=== PATIENT | female | born 1985 | race Caucasian/White ===

== ENCOUNTER 2024-05-06 18:09 | Emergency (ER) | payer OTHER ==
[2024-05-06 18:35] VITALS: RESP 18; TEMP 98.5
--- NOTE | 2024-05-06 18:44 | ERPHSYRPT ---
- History of Present Illness Time Seen by Provider: 05/06/24 18:30 Source: patient Exam Limitations: no limitations Patient Subjective Stated Complaint: pt states she gushed blood and had blood clots just prior to coming in. pt states that she is 11 weeks and 4 days pregna nt. 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 Patient reports she is currently 11 weeks 4 days . She describes vaginal bleeding. Patient's blood type is Rh+. Her last beta-hCG was 47,000. No nausea no vomiting no trauma no fever. Patient denies pain. Patient has had a complete workup including workup for STI. Patient concerned with viability. Patient otherwise feels well. She voices no other complaints or concerns at this time. Portions of this note were created with voice recognition technology. There may be grammatical, spelling, punctuation or sound alike errors Timing/Duration: today Severity: moderate Modifying Factors: Improves With: nothing Associated Symptoms: denies symptoms Allergies/Adverse Reactions: No Known Drug Allergies Allergy (Unverified 05/06/24 18:22) Home Medications: Pnv No.121/Iron/Folic Acid [ Multivitamin Tablet] 1 each PO DAILY 05/06/24 [History] Hx Tetanus, Diphtheria Vaccination/Date Given: Yes Hx Influenza Vaccination/Date Given: No Hx Pneumococcal Vaccination/Date Given: No Immunizations Up to Date: No Travel Risk - International Travel Have you traveled outside of the country in past 3 weeks: No - Emerging Infectious Disease Are you exhibiting symptoms associated with any current EIDs: No - Review of Systems Constitutional: No Symptoms Eyes: No Symptoms Ears, Nose, & Throat: No Symptoms Respiratory: No Symptoms Cardiac: No Symptoms Abdominal/Gastrointestinal: No Symptoms Genitourinary Symptoms: No Symptoms Musculoskeletal: No Symptoms Skin: No Symptoms Neurological: No Symptoms Psychological: No Symptoms Endocrine: No Symptoms Hematologic/Lymphatic: No Symptoms Immunological/Allergic: No Symptoms - Past Medical History Pertinent Past Medical History: Yes Female Reproductive Disorders: Endometriosis Other Medical History: PCOS - Past Surgical History Past Surgical History: Yes Female Surgical History: Other Other Surgical History: vaginal surgery - Female History Hx Now: Yes Gestational Age: 11 wks 4da - Social History Smoking Status: Former smoker Exposure to second hand smoke: No Drug Use: none - Social Determinants of Health Will the patient participate in the screening: Yes Do you worry about a steady place to live?: No Do you have any problems with any of the following?: No known problems In the past 12 months,have you had to go without utilities?: No Transportation Issues: No Has anyone in your support network made you feel unsafe?: No Have you or anyone in your house had to go without enough: No - Nursing Vital Signs Nursing Vital Signs: Initial Vital Signs Temperature 98.5 F 05/06/24 18:24 Pulse Rate 98 H 05/06/24 18:24 Respiratory Rate 18 05/06/24 18:24 Blood Pressure 118/75 05/06/24 18:24 Pain Scale Pain Intensity 0 - Physical Exam General Appearance: no apparent distress, alert Eye Exam: PERRL/EOMI, eyes nml inspection Ears, Nose, Throat Exam: normal ENT inspection, moist mucous membranes Neck Exam: normal inspection, full range of motion Respiratory Exam: normal breath sounds, airway intact, No respiratory distress Cardiovascular Exam: regular rate/rhythm, normal heart sounds, normal peripheral pulses Gastrointestinal/Abdomen Exam: soft, normal bowel sounds, No tenderness, No mass Back Exam: normal inspection, normal range of motion, No CVA tenderness, No vertebral tenderness Extremity Exam: normal inspection, normal range of motion, pelvis stable Neurologic Exam: alert, oriented x 3, cooperative, normal mood/affect, sensation nml, No motor deficits Skin Exam: normal color, warm, dry, No rash Lymphatic Exam: No adenopathy SpO2 Interpretation: normal SpO2: 98 O2 Delivery: Room Air - Course Nursing assessment & vital signs reviewed: Yes - Radiology Ultrasound Exam OB Ultrasound: tele radiology report (Single IUP good heart tones good movement. No adnexal masses seen. [place]-rump length is 4.8 cm. Patient is 11 weeks 4 days.) Ordered Tests: Active Orders 24 hr Category Date Time Status OB <14 WKS ADDL GESTATION [US] Stat Exams 05/06/24 18:27 Taken HCG QUALITATIVE, SERUM Stat Lab 05/06/24 18:40 Completed HCG, Quantitative (Inhouse) Stat Lab 05/06/24 18:40 Completed Lab/Rad Data: Laboratory Results 05/06/24 05/06/24 Range/Units 18:40 18:40 Serum HCG, Qual POSITIVE (NEGATIVE) Beta HCG, Quant 38863 mIU/ml - Progress Progress: improved Progress Note: 38-year-old female presents to our ED for vaginal bleeding. Patient 11 weeks 4 days . Patient's Rh is positive no indication for RhoGAM. Ultrasound is reassuring. Patient has no active vaginal bleeding at this time. We advised a urinalysis however patient did not produce urine and stated that she cannot wait to provide a urine sample as her at her 2-year-old child was waiting in the car for her. Patient states he is ready for discharge. Patient discharged before urinalysis completed per her request. She will follow-up with her [facility] doctor for further evaluation. She advises that she is currently being weaned off progesterone. Portions of this note were created with voice recognition technology. There may be grammatical, spelling, punctuation or sound alike errors Complexity problem addressed is moderate acute complicated. No critical care time. Complexity of data reviewed and analyzed is moderate. Test ordered test reviewed results analyzed and correlated clinically with history and physical exam. Risk of complication and or risk of morbidity/mortality of patient management is low. Vital stable. Time spent to discharge patient approximately 15 minutes. Plan of care established for shared decision making. No social determinants of health present impede follow-up. Portions of this note were created with voice recognition technology. There may be grammatical, spelling, punctuation or sound alike errors 05/06/24 20:18 Counseled pt/family regarding: lab results, diagnosis, need for follow-up - Departure Departure Disposition: Home Clinical Impression: Vaginal bleeding during Condition: Stable Critical Care Time: No Referrals: PETER SAMUEL [Primary Care Provider] - Follow up/PCP as directed Additional Instructions: Discharge/Care Plan NICOLAS LUDWIG was seen on 05/06/24 in the Emergency Room. The patient was counseled regarding Diagnosis,Lab results, Imaging studies, need for follow up and when to return to the Emergency Room. Prescriptions given: Discharge Note I have spoken with the patient and/or caregivers. I have explained the patient's condition, diagnosis and treatment plan based on the information available to me at this time. I have answered the patient's and/or caregiver's questions and addressed any concerns. The patient and/or caregivers have as good understanding of the patient's diagnosis, condition and treatment plan as can be expected at this point. The vital signs have been stable. The patient's condition is stable and appropriate for discharge from the emergency department. The patient will pursue further outpatient evaluation with the primary care physician or other designated or consulting physician as outlined in the discharge instructions. The patient and/or caregivers are agreeable to this plan of care and follow-up instructions have been explained in detail. The patient and/or caregivers have received these instruction. The patient/and or caregivers are aware that any significant change in condition or worsening of symptoms should prompt an immediate return to this or the closest emergency department or call 911.
[2024-05-06 19:13] LABS: HCG SERUM TEST POSITIVE (NEGATIVE)
[2024-05-06 20:29] VITALS: BP 131/80; PULSE 84; O2SAT 97
--- NOTE | 2024-05-07 08:53 | XRAY ---
Indication: First trimester bleeding. Two-dimensional transvaginal early OB ultrasound performed. Comparison: None Single intrauterine gestational sac with single pole. Mean sac diameter is 5.16 cm corresponding to 11 weeks 3 days. Mean crown-rump length is 4.82 cm corresponding to 11 weeks 4 days. heart rate 161 bpm. Tiny nonspecific fluid in endocervix up to 2-3 mm. Neither ovaries visualized. No suspicious adnexal mass or free fluid. Impression: Single viable intrauterine measuring 11 weeks 4 days. Expected date confinement is November 21, 2024. Tiny nonspecific fluid in endocervix. Comment: Preliminary report was given.
== END 2024-05-06 20:29 | disposition home or self-care (01) ==
LOC: ED 18:09
DX: O20.9 Hemorrhage in early pregnancy, unspecified (principal); Z3A.11 11 weeks gestation of pregnancy; O09.291 Supervision of pregnancy with other poor reproductive or obstetric history, first trimester; O26.21 Pregnancy care for patient with recurrent pregnancy loss, first trimester; O09.521 Supervision of elderly multigravida, first trimester
CPT/HCPCS: 36415; 76801; 76802; 84702; 84703; 99283